=== PATIENT | male | born 1980 | race Two or more races ===

== ENCOUNTER → 2019-11-02 | Outpatient (CLI) | payer OTHER ==
[~2019-11-02] VITALS: Ht 180.3 cm; Wt 95.3 kg
== END | disposition home or self-care (01) ==
LOC: OFIC 805 15:30
PROVIDERS: ATTEND Otolaryngology
DX: H90.11 Conductive hearing loss, unilateral, right ear, with unrestricted hearing on the contralateral side (principal); H92.01 Otalgia, right ear; H61.21 Impacted cerumen, right ear

== ENCOUNTER 2023-10-16 14:35 | Emergency (ER) | payer OTHER ==
[~2023-10-16] VITALS: Ht 182.9 cm; Wt 94.3 kg
[2023-10-16] MEDS ORDERED: AMLODIPINE-OLM1 EAC3 PO (15:22)
[2023-10-16] MEDS ORDERED: LOSARTAN POTASS25 MG PO (15:22)
[2023-10-16] MEDS ORDERED: METHYLPREDNISOLONE SOD SUCC 40 MG VIAL IV ONE (15:45)
[2023-10-16] MEDS ORDERED: 0.9 % SODIUM CHLORIDE 500 ML IV ONE (15:45)
[2023-10-16] MEDS ORDERED: FAMOtidine 10 MG/ML (4ML VIAL) IV ONE (15:45)
[2023-10-16] MEDS ORDERED: DIPHENHYDRAMINE HCL 50 MG/ML VIAL 1ML IV ONE (15:45)
[2023-10-16 16:30] LABS: HEMOGLOBIN 14.5 g/dL (13-16.00); MEAN CELL VOLUME 88.4 fL (80.0-100.00); MEAN CORPUSCULAR HEMOGLOBIN 31.3 pg (27.00-32.0); MEAN CORPUSCULAR HGB CONC 35.5 g/dl (32.0-36.0); PLATELET COUNT 257 K/uL (150-450); RED BLOOD COUNT 4.63 M/uL (4.00-6.00); RED CELL DISTRIBUTION WIDTH 13.9 % (11.5-14.5)
[2023-10-16 17:03] LABS: ALBUMIN 4.4 gm/dL (3.4-5.0); BILIRUBIN TOTAL 1.05 mg/dL (0.3-1.2); CALCIUM 9.4 mg/dL (8.5-10.1); CREATININE SERUM 0.94 mg/dL (0.70-1.30); GFR 88.01; GLOBULINA 3.6 G/DL (2.4-3.5); POTASSIUM 3.5 mEq/L (3.5-5.1)
== END 2023-10-16 21:21 | disposition designated cancer center or children's hospital (05) ==
LOC: ER 14:36
PROVIDERS: General Practice
DX: T18.198A Other foreign object in esophagus causing other injury, initial encounter (principal); R13.19 Other dysphagia; I10 Essential (primary) hypertension